=== PATIENT | male | born 1990 | race Hispanic/Latino ===

== ENCOUNTER 2022-02-07 12:14 | Observation (INO) | payer OTHER, SELFPAY ==
[2022-02-07 12:34] LABS: #Eosinphils 0.1 thou/uL (0.0-0.7); #Lymphocytes 1.5 thou/uL (1.20-3.40); #Monocytes 0.5 thou/uL (0.11-0.59); #Neutrophils 7.5 thou/uL (1.40-6.50); %Basophils 0.2 % (0.0-1.0); %Eosinophils 0.6 % (0.0-10.0); %Lymphocytes 15.9 % (21.0-51.0); %Monocytes 5.1 % (0.0-10.0); %Neutrophils 78.3 % (42.0-75.0); Hemoglobin 14.9 g/dL (14.0-18.0); Mean Corpuscular HGB CONC 32.4 g/dL (32.0-36.0); Mean Corpuscular Hemoglobin 30.1 pg (27.0-31.0); Mean Corpuscular Volume 92.9 fL (78.0-98.0); Mean Platelet Volume 9.5 fL (7.4-10.4); Platelet Count 175 thou/uL (130-400); RBC Distribution Width 12.1 % (11.5-14.5); Red Blood Cell (RBC) Count 4.93 mill/uL (4.70-6.10); White Blood Cell (WBC) Count 9.5 thou/uL (4.8-10.8)
[2022-02-07] MEDS ORDERED: Boostrix 0.5 ML (Tdap) VIAL ONE (12:48)
[2022-02-07] MEDS ORDERED: CEFAZOLIN 2 GM VIAL ONE (12:48)
[2022-02-07 13:01] LABS: ALT (SGPT) 18 U/L (8-55); AST (SGOT) 20 U/L (5-34); Albumin 4.1 g/dL (3.5-5.0); Alkaline Phosphatase 61 U/L (40-110); Anion Gap 12 mmol/L (10-20); BUN (Urea Nitrogen) 11 mg/dL (8.9-20.6); Bilirubin, Total 0.6 mg/dL (0.2-1.2); Calc. Creatinine Clearance 0 mL/min (70-130); Calcium 8.9 mg/dL (7.8-10.44); Carbon Dioxide 27 mmol/L (22-29); Chloride 106 mmol/L (98-107); Estimated GFR 95; Globulin 2.7 g/dL (2.4-3.5); Glucose 116 mg/dL (70-105); Potassium 3.5 mmol/L (3.5-5.1); Protein, Total 6.8 g/dL (6.0-8.3); Sodium 141 mmol/L (136-145)
[2022-02-07] MEDS ORDERED: Lidocaine 1% PF 5 ML VIAL ONE ×3 (13:32→15:51)
[2022-02-07] MEDS ORDERED: Ondansetron ODT 4 MG TAB PO PRN (15:19)
[2022-02-07] MEDS ORDERED: Dextrose 50% Abboject 50 ML SYRINGE SLOW IVP PRN (15:19)
[2022-02-07] MEDS ORDERED: Promethazine HCl 25 MG/ML VIAL IM PRN (15:19)
[2022-02-07] MEDS ORDERED: Ondansetron PF 4 MG/2 ML Vial IVP PRN (15:19)
[2022-02-07] MEDS ORDERED: Dextrose 5% in Water 1,000 ML IV PRN (15:19)
[2022-02-07] MEDS ORDERED: Ibuprofen 800 MG TAB PO PRN (15:24)
[2022-02-07] MEDS ORDERED: Cyclobenzaprine 10 MG TAB PO PRN (15:24)
[2022-02-07] MEDS ORDERED: Ibuprofen 200 MG TAB PO PRN (15:30)
[2022-02-07] MEDS ORDERED: traMADol HCl 50 MG TAB PO SCH (15:30)
[2022-02-07] MEDS ORDERED: Acetaminophen 500 MG TAB PO SCH (15:30)
[2022-02-07] MEDS ORDERED: Ketorolac Tromethamine 30 MG/ML VIAL ONE (15:38)
[2022-02-07] MEDS ORDERED: Morphine 4 MG/ML VIAL ONE (15:38)
[2022-02-07] MEDS ORDERED: Ondansetron PF 4 MG/2 ML Vial ONE (15:46)
[2022-02-07 17:49] VITALS: BMI 28.5
[2022-02-07] MEDS: Gabapentin 100 MG CAP PO SCH ×2 (17:51→23:30)
[2022-02-07] MEDS: Acetaminophen 500 MG TAB PO SCH ×2 (18:28→23:30)
[2022-02-07] MEDS: traMADol HCl 50 MG TAB PO SCH ×2 (18:28→23:30)
[2022-02-07] MEDS: Senokot S 8.6-50 MG TAB PO SCH (21:46)
[2022-02-07] MEDS: Famotidine 20 MG TAB PO SCH (21:46)
[2022-02-08 05:16] LABS: #Eosinphils 0.1 thou/uL (0.0-0.7); #Monocytes 0.8 thou/uL (0.11-0.59); #Neutrophils 4.5 thou/uL (1.40-6.50); %Basophils 0.5 % (0.0-1.0); %Lymphocytes 27.5 % (21.0-51.0); %Monocytes 11.1 % (0.0-10.0); %Neutrophils 59.8 % (42.0-75.0); Mean Corpuscular HGB CONC 33.3 g/dL (32.0-36.0); Mean Corpuscular Hemoglobin 30.9 pg (27.0-31.0); Mean Corpuscular Volume 92.9 fL (78.0-98.0); Mean Platelet Volume 9.1 fL (7.4-10.4); Platelet Count 145 thou/uL (130-400); RBC Distribution Width 12.1 % (11.5-14.5); Red Blood Cell (RBC) Count 4.53 mill/uL (4.70-6.10); White Blood Cell (WBC) Count 7.4 thou/uL (4.8-10.8)
[2022-02-08 05:51] LABS: Anion Gap 15 mmol/L (10-20); BUN (Urea Nitrogen) 11 mg/dL (8.9-20.6); Calc. Creatinine Clearance 114 mL/min (70-130); Calcium 8.8 mg/dL (7.8-10.44); Carbon Dioxide 23 mmol/L (22-29); Chloride 105 mmol/L (98-107); Estimated GFR 89; Glucose 97 mg/dL (70-105); Phosphorus 4.1 mg/dL (2.3-4.7); Potassium 4.2 mmol/L (3.5-5.1); Sodium 139 mmol/L (136-145)
[2022-02-08] MEDS: Acetaminophen 500 MG TAB PO SCH ×2 (06:08→13:04)
[2022-02-08] MEDS: traMADol HCl 50 MG TAB PO SCH ×2 (06:09→13:03)
[2022-02-08] MEDS: Gabapentin 100 MG CAP PO SCH (07:39)
[2022-02-08] MEDS: Famotidine 20 MG TAB PO SCH (08:12)
[2022-02-08] MEDS: Senokot S 8.6-50 MG TAB PO SCH (08:13)
[2022-02-08] MEDS ORDERED: Polyethylene Glycol 3350 17 GM Packet PO SCH (09:00)
[2022-02-08 12:25] VITALS: BP 128/86; TEMP 98
[2022-02-08] MEDS ORDERED: Bacitracin 1 PK TOP SCH (15:00)
== END 2022-02-08 13:13 | disposition home or self-care (01) ==
LOC: ERS 12:14 → SURG A 15:19
PROVIDERS: ADMIT Student in an Organized Health Care Education/Training Program; ATTEND Surgery
DX: S27.322A Contusion of lung, bilateral, initial encounter (principal); S01.01XA Laceration without foreign body of scalp, initial encounter; S60.512A Abrasion of left hand, initial encounter; S60.511A Abrasion of right hand, initial encounter; G89.11 Acute pain due to trauma; Z20.822 Contact with and (suspected) exposure to COVID-19; V89.2XXA Person injured in unspecified motor-vehicle accident, traffic, initial encounter
CPT/HCPCS: 36415; 70450; 71045; 71260; 72125; 74177; 80048; 80053; 83735; 84100; 85025; 90715; 94640; G0378; G0390; J0690; J1885; J2270; J2405; J7620; U0003; U0005